=== PATIENT | female | born 1955 | race Two or more races ===

== ENCOUNTER 2019-02-09 05:02 | Inpatient (IN) | payer MEDICARE, OTHER ==
[~2019-02-09] VITALS: Ht 165.1 cm; Wt 79.4 kg
[2019-02-09 05:45] VITALS: BP 124/68
[2019-02-09] MEDS ORDERED: oxyCODONE HCL SR 10MG TAB.SR.12H PO ONE ×2 (06:41→07:00)
[2019-02-09] MEDS ORDERED: METOCLOPRAMIDE HCL 10 MG/2 ML VIAL ONE (06:41)
[2019-02-09] MEDS ORDERED: ACETAMINOPHEN ES 500 MG TABLET ONE (06:42)
[2019-02-09] MEDS ORDERED: CELECOXIB 100 MG CAPSULE ONE (06:42)
[2019-02-09] MEDS ORDERED: KETOROLAC TROMETHAMINE INJ 30 MG/ML VIAL ONE (06:56)
[2019-02-09] MEDS ORDERED: MORPHINE SULFATE INJ 4 MG/ML DISP.SYRIN ONE (06:57)
[2019-02-09] MEDS ORDERED: BUPIVACAINE MPF 0.5% W/EPI INJ 30 ML VIAL ONE (06:57)
--- NOTE | 2019-02-09 06:58 | NUR ---
LINDERMAN OPERATOR NOTES PATIENT CAME TO [facility] AT 0527. PT FROM HOME.FAMILY AT BEDSIDE. PT IS ADMITTED FOR DAY SURGERY. ADMITTING DX IS TOTAL RIGHT HIP REPLACEMENT/ ARTHROPLASTY. PT IS A&OX4. PT IS MOLDOV[place] SPEAKING. SKIN INTACT. IV PLACED IN L FA #20G S/L. ADMISSION DONE ALL DUE PRE OP MEDS GIVEN . PT TRANSPORTED OFF FLOOR AT 0650. ALL PERSONAL BELONGINGS WITH FAMILY.
[2019-02-09] MEDS ORDERED: TRANEXAMIC ACID 1,500 MG in IV NS 0.9% 50 ML IV ONE (07:00)
[2019-02-09] MEDS ORDERED: CELECOXIB 100 MG CAPSULE PO ONE (07:00)
[2019-02-09] MEDS ORDERED: ACETAMINOPHEN 325 MG TABLET PO ONE (07:00)
[2019-02-09] MEDS ORDERED: METOCLOPRAMIDE HCL 10 MG/2 ML VIAL IV ONE (07:00)
[2019-02-09] MEDS ORDERED: BACITRACIN 50000 UNITS/VIAL ONE (07:07)
[2019-02-09] MEDS ORDERED: MIDAZOLAM HCL 2 MG/2ML VIAL ONE (07:12)
[2019-02-09] MEDS ORDERED: FENTANYL PF 250MCG/5ML AMPUL ONE (07:13)
[2019-02-09] MEDS ORDERED: ROCURONIUM BROMIDE 50 MG/5 ML ONE (07:13)
[2019-02-09] MEDS ORDERED: FENTANYL PF 100MCG/2ML AMPUL ONE (11:00)
--- NOTE | 2019-02-09 11:30 | NUR ---
RN MS NOTES CIRCULATION CHECKED BILATERAL FEET WARM TO TOUCH GOOD CAPILLARY REFILL ABLE TO MOVE TOES ON COMMAND
--- NOTE | 2019-02-09 11:34 | NUR ---
RN MS NOTES PATIENT RETURNED FROM SURGERY R ORIF WITH ABDUCTOR PILLOW EXTREMELY DROWSY BUT ABLE TO AROUSE. VITALS UPON ARRIVAL BP 134/63 HR 64 RR 16 O2 100% ON 2 LTRS SCDS ORDERS FOLLOWS EGGCRATE MANNY HEEL PROTECTORS HIP PRECAUTIONS S/P POSTERIOR MILAGROS KEEP ABDUCTION PILLOW IN PLACE EXCEPT DURING AMBULATION /PT CHECK CIRCULATION Q1 HR X2 THEN Q2 HR X3 THEN Q4 HR X2 THEN Q 8HR. ENCOURAGE COUGH AND DEEP BREATHING OT /PT EVALUATION REGULAR DIET ,OOB TO CHAIR BID WITH ASSIST WEIGHT BEARING STATUS TO BATHROOM WITH WALKER
[2019-02-09 12:00] VITALS: BP 134/63
[2019-02-09] MEDS ORDERED: IV D5/0.45 NACL 1,000 ML IV PRN ×2 (12:00→13:00)
--- NOTE | 2019-02-09 12:30 | NUR ---
RN MS NOTES CIRCULATION CHECKED FEET WARM WITH GOOD CAPILLARY REFILL ABLE TO WIGGLE TOES
[2019-02-09] MEDS ORDERED: HYDR-3976 PO (12:32)
[2019-02-09] MEDS ORDERED: ZOLPIDEM TARTRATE 5 MG TABLET PO PRN (13:00)
[2019-02-09] MEDS ORDERED: MAGNESIUM HYDROXIDE 30 ML UDC PO PRN (13:00)
[2019-02-09] MEDS ORDERED: ACETAMINOPHEN 325 MG TABLET PO PRN (13:00)
[2019-02-09] MEDS ORDERED: BISACODYL SUPP (10 MG) 10 MG/SUPP.RECT SUPP.RECT RC PRN (13:00)
[2019-02-09] MEDS ORDERED: DOCUSATE SODIUM 100 MG CAPSULE PO PRN (13:00)
[2019-02-09] MEDS ORDERED: MAG HYDROX/AL HYDROX/SIMETH 30 ML UDC PO PRN (13:30)
[2019-02-09] MEDS ORDERED: ONDANSETRON HCL/PF 4 MG/2 ML VIAL IVP PRN (13:30)
[2019-02-09] MEDS ORDERED: HYDROCODONE/APAP 5/325MG 1 EACH TABLET PO PRN (13:30)
[2019-02-09] MEDS ORDERED: Z GUARD REMEDY 2 OZ OINT TP PRN (13:30)
--- NOTE | 2019-02-09 14:40 | NUR ---
RN MS NOTES CIRCULATION CHECK BILATERAL FEET WARM TO TOUCH ABLE TO WIGGLE TOES GOOD CAPILLARY RETURN
--- NOTE | 2019-02-09 15:45 | NUR ---
RN MS NOTES DE DANIEL TO SEE PATIENT UNABLE TO OBTAIN H&P CONTACT MD WHEN DAUGHTER COMES BACK
[2019-02-09] MEDS: ANCEF 1 GM/50 ML D5W IV SCH ×4 (15:53→23:37)
[2019-02-09 16:00] VITALS: BP 98/59
--- NOTE | 2019-02-09 16:30 | NUR ---
RN MS NOTES BILATERAL CIRCULATION CHECKED. NO SWELLING ABLE TO WIGGLE TOES WARM TO TOUCH GOOD CAPILLARY REFILL
--- NOTE | 2019-02-09 18:30 | NUR ---
RN MS NOTES PATIENT ABLE TO AROUSE STILL SLEEPY. CIRCULATION CHEACK DONE. ABLE TO WIGGLE TOES WARM TO TOUCH GOOD CAPILLARY REFILL
--- NOTE | 2019-02-09 18:51 | NUR ---
RN MS CLOSING NOTES PATIENT STABLE THROUGHOUT SHIFT. NO SIGNS OR SYMPTOMS OF RESPIRATORY DISTRESS OR ACUTE PAIN. SATURATING 98% ON 2 LTRS NASAL CANNULA. LETHARGIC BUT ABLE TO AROUSE WITH TOUCH AND VOICE. IVF RUNNING IN LAC D51/2 ND @ 75 ML/HR. DRESSING CLEAN AND INTACT. CIRCULATION CHECKS DONE WITH GOOD RESULTS. SAFETY PRECAUTIONS IN PLACE BED IN LOW POSITION CALL LIGHT WITHIN REACH WILL ENDORSE TO NOC
[2019-02-09] MEDS: HYDROMORPHONE 1 MG/1 ML DISP.SYRIN IV PRN (19:10)
[2019-02-09 20:00] VITALS: BP 103/55
--- NOTE | 2019-02-09 20:00 | NUR ---
RN INITIAL NOTES RECEIVED PATIENT RESTING IN BED, FAMILY A BEDSIDE. NO SIGNS OR SYMPTOMS OF RESPIRATORY DISTRESS. PT REPORT PAIN RELIVE FROM PAIN MEDS. SATURATING 98% ON 2 LTRS NASAL CANNULA. IVF RUNNING IN LAC D51/2 ND @ 75 ML/HR. DRESSING CLEAN AND INTACT. ALL SAFETY PRECAUTIONS IN PLACE BED IN LOW POSITION CALL LIGHT WITHIN REACH WILL CONT TO MONITOR. Addendum: 02/10/19 at 0635 by ROBERT DUGGAN RN ABDUCTION PILLOW IN PLACE.
[2019-02-10] VITALS: BP 107/55
[2019-02-10 04:00] VITALS: BP 113/65
[2019-02-10] MEDS: HYDROMORPHONE 1 MG/1 ML DISP.SYRIN IV PRN ×2 (04:37→22:07)
--- NOTE | 2019-02-10 05:30 | NUR ---
RN NOTES CIRCULATION CHECKED BILATERAL FEET WARM TO TOUCH GOOD CAPILLARY REFILL ABLE TO MOVE TOES ON COMMAND.
--- NOTE | 2019-02-10 06:00 | NUR ---
RN NOTES PATIENT REMAINED STABLE THROUGHOUT SHIFT. NO SIGNS OR SYMPTOMS OF RESPIRATORY DISTRESS OR ACUTE PAIN. PT ON RA SATTING 98-100%. DRESSING CLEAN AND INTACT. CIRCULATION CHECKS DONE WITH GOOD RESULTS. PAIN MEDS GIVEN ORDERED. SAFETY PRECAUTIONS IN PLACE BED IN LOW POSITION CALL LIGHT WITHIN REACH WILL ENDORSE TO AM RN FOR MICKEY
[2019-02-10 06:26] LABS: CREATININE 0.6 mg/dL (0.6-1.3); MAGNESIUM 1.7 mg/dL (1.8-2.4); PHOSPHORUS 3.6 mg/dL (2.5-4.9); POTASSIUM 3.8 mmol/L (3.5-5.1)
[2019-02-10 06:28] LABS: BASOPHILS % (AUTO) 0.2 % (0.0-2.0); EOSINOPHILS % (AUTO) 0.3 % (0.0-6.0); HEMATOCRIT 30 % (33-45); HEMOGLOBIN 10.8 g/dL (11.5-14.8); LYMPHOCYTES % (AUTO) 11.2 % (20.0-44.0); MEAN CORPUSCULAR HGB CONC 35 g/dl (31.0-36.0); MEAN CORPUSCULAR VOLUME 96 fL (82-100); MONOCYTES % (AUTO) 11.3 % (2.0-12.0); NEUTROPHILS # (AUTO) 6.7 /CMM (1.8-8.9); PLATELET COUNT (AUTO) 208 /CMM (150-450); RED BLOOD CELL COUNT(AUTO) 3.18 MIL/uL (4.0-5.2); WHITE BLOOD COUNT (AUTO) 8.8 K/uL (4.3-11.0)
--- NOTE | 2019-02-10 06:48 | NUR ---
MS CLOSING NOTES PATIENT STABLE THROUGHOUT SHIFT. NO SIGNS OR SYMPTOMS OF RESPIRATORY DISTRESS OR ACUTE PAIN. DRESSING CLEAN AND INTACT. CIRCULATION CHECKS DONE WITH GOOD RESULTS. SAFETY PRECAUTIONS IN PLACE BED IN LOW POSITION CALL LIGHT WITHIN REACH WILL ENDORSE TO AM RN
--- NOTE | 2019-02-10 07:30 | NUR ---
INITIAL: RECEIVED PATIENT RESTING IN BED, FAMILY A BEDSIDE. NO SIGNS OR SYMPTOMS OF RESPIRATORY DISTRESS. PT REPORT PAIN RELIVE FROM PAIN MEDS. SATURATING 98% ON ROOM AIR. PIV 20G RAC CLEAN DRY INTACT FLUSHES WELL WITHOUT PAIN REDNESS OR SWELLING. DRESSING CLEAN AND INTACT. ALL SAFETY PRECAUTIONS IN PLACE BED IN LOW POSITION CALL LIGHT WITHIN REACH WILL CONT TO MONITOR.
[2019-02-10 08:00] VITALS: BP 114/65
[2019-02-10 08:50] VITALS: BP_SYST 114; BP_SYST 129; BP_DIAS 65; BP_DIAS 71
[2019-02-10] MEDS: ASPIRIN EC 325 MG TABLET.DR PO SCH ×2 (09:29→16:40)
[2019-02-10] MEDS: Magnesium 1GM/D5W 100ML PREMIX 100 ML IV SCH ×2 (09:32→11:13)
[2019-02-10] MEDS: CELECOXIB 100 MG CAPSULE PO SCH ×2 (09:35→20:37)
[2019-02-10] MEDS: KETOROLAC TROMETHAMINE INJ 30 MG/ML VIAL IV SCH ×3 (09:35→17:51)
[2019-02-10] MEDS: HYDROCODONE/APAP 5/325MG 1 EACH TABLET PO SCH ×3 (13:32→20:37)
[2019-02-10 20:00] VITALS: BP 113/59
--- NOTE | 2019-02-10 20:00 | NUR ---
RN INITIAL NOTES RECEIVED PATIENT RESTING IN BED. NO SIGNS OR SYMPTOMS OF RESPIRATORY DISTRESS. SATURATING 98% ON ROOM AIR. PIV 20G RAC CLEAN DRY INTACT FLUSHES WELL WITHOUT PAIN REDNESS OR SWELLING. DRESSING CLEAN AND INTACT. ALL SAFETY PRECAUTIONS IN PLACE, BED IN LOW LOCKED POSITION CALL LIGHT WITHIN REACH, WILL CONT TO MONITOR.
[2019-02-10] MEDS: SIMVASTATIN 10 MG TABLET PO SCH (21:50)
[2019-02-11] MEDS: HYDROCODONE/APAP 5/325MG 1 EACH TABLET PO SCH ×6 (00:47→21:26)
[2019-02-11] MEDS: KETOROLAC TROMETHAMINE INJ 30 MG/ML VIAL IV SCH ×4 (00:53→17:04)
[2019-02-11 04:00] VITALS: BP 117/58
[2019-02-11 06:12] LABS: BASOPHILS % (AUTO) 0.2 % (0.0-2.0); EOSINOPHILS % (AUTO) 1.3 % (0.0-6.0); HEMATOCRIT 31 % (33-45); HEMOGLOBIN 10.9 g/dL (11.5-14.8); LYMPHOCYTES # (AUTO) 1.1 /CMM (0.8-4.8); LYMPHOCYTES % (AUTO) 11.2 % (20.0-44.0); MEAN CORPUSCULAR HGB CONC 35 g/dl (31.0-36.0); MEAN CORPUSCULAR VOLUME 95 fL (82-100); MONOCYTES # (AUTO) 1.1 /CMM (0.1-1.30); MONOCYTES % (AUTO) 11.3 % (2.0-12.0); NEUTROPHILS # (AUTO) 7.3 /CMM (1.8-8.9); PLATELET COUNT (AUTO) 206 /CMM (150-450); RED BLOOD CELL COUNT(AUTO) 3.26 MIL/uL (4.0-5.2); WHITE BLOOD COUNT (AUTO) 9.6 K/uL (4.3-11.0)
[2019-02-11 06:29] LABS: CALCIUM, SERUM 8.4 mg/dL (8.5-10.1); CREATININE 0.6 mg/dL (0.6-1.3); MAGNESIUM 1.9 mg/dL (1.8-2.4); PHOSPHORUS 3.3 mg/dL (2.5-4.9)
--- NOTE | 2019-02-11 06:48 | NUR ---
RN CLOSING NOTES PATIENT STABLE THROUGHOUT SHIFT. NO SIGNS OR SYMPTOMS OF RESPIRATORY DISTRESS OR ACUTE PAIN. DRESSING CLEAN AND INTACT. CIRCULATION CHECKS. SAFETY PRECAUTIONS IN PLACE BED IN LOW POSITION, CALL LIGHT WITHIN REACH WILL ENDORSE TO AM RN
[2019-02-11 08:00] VITALS: BP 128/68
--- NOTE | 2019-02-11 08:00 | NUR ---
MS1/RN AM SHIFT INITIAL NOTES RECEIVED PT AWAKE IN BED, PT A/O X 4, TUNISIAN SPEAKING, COMPLAINT OF PAIN RATED 7/10 ON RIGHT HIP. ON ROOM AIR SATURATING @ 97%. IV SITE FLUSHED, PATENT, SL. SURGICAL SITE DRESSING INTACT AND DRY, NO S/S OF INFECTION. ICE PACKED PLACED BY RIGHT HIP. PT TO BE GIVEN HER SCHEDULED AM MEDS TO BE GIVEN. CL WITHIN REACHED AND SAFETY MAINTAINED. ON GOING MONITORING.
[2019-02-11] MEDS: CELECOXIB 100 MG CAPSULE PO SCH ×2 (08:36→21:26)
[2019-02-11] MEDS: ASPIRIN EC 325 MG TABLET.DR PO SCH ×2 (08:36→16:55)
--- NOTE | 2019-02-11 14:30 | NUR ---
MS1/RN PHYSICAL THERAPY NO CHANGE OF CONDITION. PT BEING SEEN BY PHYSICAL THERAPIST. ON GOING MONITORING.
[2019-02-11 16:00] VITALS: BP 117/65
--- NOTE | 2019-02-11 19:30 | NUR ---
MS1/RN AM SHIFT END NOTES ALL NEEDS MET. NO ACUTE CHANGE OF CONDITION NOTED DURING THE SHIFT. PT ENDORSED TO PM NURSE TO CONTINUE CARE. CL WITHIN REACHED AND SAFETY MAINTAINED.
[2019-02-11 20:00] VITALS: BP 111/82
--- NOTE | 2019-02-11 20:00 | NUR ---
MS RN NOTES RECEIVED PATIENT AWAKE IN BED WITH NO DISTRESS NOTED. CALL LIGHT WITHIN REACH. FAMILY AT BEDSIDE. NO C/O PAIN OR DISCOMFORT. PERIPHERAL LINE INTACT, PATENT, AND REMAINS SALINE LOCKED. RIGHT HIP INCISION DRESSING REMAINS CLEAN, DRY, AND INTACT. PATIENT SENEGALESE SPEAKING ONLY. WITH TRANSLATION ASSISTANCE FROM FAMILY, ENCOURAGED USE OF CALL LIGHT FOR ASSISTANCE AND VERBALIZED GOOD UNDERSTANDING. BED IN LOW LOCK SETTING. ROOM FREE OF CLUTTER AND BELONGINGS KEPT NEAR BEDSIDE. WILL CONTINUE TO MONITOR.
[2019-02-11] MEDS: SIMVASTATIN 10 MG TABLET PO SCH (21:25)
[2019-02-12] MEDS: HYDROCODONE/APAP 5/325MG 1 EACH TABLET PO SCH ×4 (00:09→12:21)
[2019-02-12] MEDS: KETOROLAC TROMETHAMINE INJ 30 MG/ML VIAL IV SCH ×3 (00:09→12:21)
[2019-02-12 04:00] VITALS: BP 126/89
--- NOTE | 2019-02-12 06:04 | NUR ---
MS RN NOTES PATIENT ASLEEP IN BED WITH NO DISTRESS NOTED. CALL LIGHT WITHIN REACH. PERIPHERAL LINE INTACT AND PATENT. ALL DUE MEDS GIVEN ORDERED WITH NO ASE NOTED. NO C/O PAIN OR DISCOMFORT. ABDUCTOR PILLOW IN PLACE. RLE WARM TO TOUCH AND NOTED WITH GOOD CIRCULATION. RIGHT HIP DRESSING REMAINS INTACT, CLEAN, AND DRY. BED IN LOW LOCK SETTING. ALL BELONGINGS KEPT NEAR BEDSIDE. WILL ENDORSE TO ONCOMING SHIFT.
[2019-02-12 06:26] LABS: BASOPHILS % (AUTO) 0.3 % (0.0-2.0); EOSINOPHILS % (AUTO) 2.6 % (0.0-6.0); HEMATOCRIT 29 % (33-45); HEMOGLOBIN 10.4 g/dL (11.5-14.8); LYMPHOCYTES # (AUTO) 1.3 /CMM (0.8-4.8); LYMPHOCYTES % (AUTO) 16.8 % (20.0-44.0); MEAN CORPUSCULAR HGB CONC 35 g/dl (31.0-36.0); MEAN CORPUSCULAR VOLUME 95 fL (82-100); MONOCYTES # (AUTO) 0.9 /CMM (0.1-1.30); MONOCYTES % (AUTO) 11.8 % (2.0-12.0); NEUTROPHILS # (AUTO) 5.3 /CMM (1.8-8.9); NEUTROPHILS % (AUTO) 68.5 % (43.0-81.0); PLATELET COUNT (AUTO) 226 /CMM (150-450); RED BLOOD CELL COUNT(AUTO) 3.11 MIL/uL (4.0-5.2); WHITE BLOOD COUNT (AUTO) 7.8 K/uL (4.3-11.0)
[2019-02-12 06:49] LABS: CALCIUM, SERUM 8.6 mg/dL (8.5-10.1); CREATININE 0.6 mg/dL (0.6-1.3); MAGNESIUM 1.8 mg/dL (1.8-2.4); PHOSPHORUS 3.7 mg/dL (2.5-4.9); POTASSIUM 4.2 mmol/L (3.5-5.1)
--- NOTE | 2019-02-12 07:00 | NUR ---
MS RN OPENING NOTES RECEIVED PT LYING ON BED.ALERT/ORIENTED X4 WITH INDONESIAN SPEAKING.ON ROOM AIR,TOLERATING WELL.NO SOB AND ACUTE DISTRESS NOTED.IV LINE IS ON LEFT FA G22,SITE IS CLEAN,DRY AND INTACT.NO INFILTRATION NOTED.CAN AMBULATE TO THE RESTROOM WITH WALKER.NO PAIN NOTED FOR NOW.BED IS LOW POSITION AND LOCKED.CALL LIGHT IS WITHIN REACH.WILL CONTINUE TO MONITOR THE PT CLOSELY.
[2019-02-12 08:00] VITALS: BP 119/74
[2019-02-12] MEDS: CELECOXIB 100 MG CAPSULE PO SCH (08:17)
[2019-02-12] MEDS: ASPIRIN EC 325 MG TABLET.DR PO SCH (08:17)
[2019-02-12] MEDS ORDERED: ASPI-869 PO (11:51)
[2019-02-12] MEDS ORDERED: HYDR-3972 PO (11:51)
[2019-02-12] MEDS ORDERED: SIMV10TA6 PO (11:51)
[2019-02-12] MEDS ORDERED: MELO15TA13 PO (11:51)
--- NOTE | 2019-02-12 14:22 | NUR ---
SHEET LAYER NOTES PT IS DISCHARGED TO [facility].ALL THE DISCHARGE MEDICATION AND PROCEDURES REPORTED TO ESTHER ELLISON IN REHAB.MEDICATION PRESCRIPTION GIVEN WITH PT DISCHARGE PAPERS,ENDORSED TO AMBULANCE PERSONNEL AND STAFF IN REHAB.ALERT/ORIENTED X4.DENIES PAIN AND NUMBNESS.SKIN ASSESSMENT HAS DONE,PT REFUSED TO TAKE PICTURES.OFFEREDX3,STILL REFUSED.IV LINE FROM LEFT FA G20 IS REMOVED,NO BLEEDING NOTED,MILD PRESSURE DRESSING APPLIED.VITAL SIGNS CHECKED AND STABLE.PT IS CLEAN AND DRY.ON ENA AIR,TOLERATING WELL. NO SOB AND ACUTE DISTRESS NOTED. Addendum: 02/12/19 at 1429 by GENARO VILLAREAL RN BELONGING LIST HAS SIGNED BY THE PT.
== END 2019-02-12 14:22 | DRG 470 ==
LOC: DS 05:02 → MEDSG1 05:04
PROVIDERS: ADMIT Hospitalist; ATTEND Hospitalist
PROC: 0SR90JZ Replacement of Right Hip Joint with Synthetic Substitute, Open Approach (ICD-10-PCS; principal; 2019-02-09)
DX: M87.851 Other osteonecrosis, right femur (principal); E78.5 Hyperlipidemia, unspecified; E66.9 Obesity, unspecified; E83.42 Hypomagnesemia; Z68.29 Body mass index [BMI] 29.0-29.9, adult; D64.9 Anemia, unspecified
CPT/HCPCS: 36415; 72170-TC; 80048-TC; 80061-TC; 83735-TC; 84100-TC; 85025-TC; 87081-TC; 88305-TC; 88311-TC; 97110-TC; 97116-TC; 97530-TC; A4216; A4217; A6209; A6402; G0378; J0690; J1170; J1885; J2250; J2270; J2405; J2704; J2710; J2765; J3010; J3475; J3490; J7060